=== PATIENT | male | born 1990 | race Two or more races ===

== ENCOUNTER 2018-03-16 15:58 | Emergency (ER) | payer OTHER ==
[2018-03-16] MEDS ORDERED: SILVER NITRATE APPLICATOR 1 APPL TP ONE (16:34)
[2018-03-16] MEDS ORDERED: amLODIPine BESYLATE 5 MG TAB PO ONE (17:15)
--- NOTE | 2018-03-16 17:18 | EDPHY ---
H & P Time Seen by Provider: 03/16/18 16:09 HPI/ROS: 28-year-old male presents complaining of right sided nosebleed that began earlier today has been intermittent all day. This is very unusual for him however he does say that he feels like his nose has been quite dry. He was also noted to have an elevated blood pressure, he states high blood pressure runs in his family and he has been told several years ago that his blood pressure was borderline. He denies headache chest pain shortness of breath leg swelling. Review of systems General no fever no chills no weakness HEENT no eye pain no eye discharge. No eye redness, no sore throat Respiratory no cough, no shortness of breath Cardiac no chest pain, no peripheral edema GI no abdominal pain, no diarrhea, no constipation, no nausea, no vomiting no flank pain, no hematuria, no dysuria Musculoskeletal no myalgias, no joint pain Heme no easy bruising, no easy bleeding Endo no polyuria, no polydipsia Skin no rashes, no pruritus Neuro no syncope, no dizziness, no headaches Psych is no suicidal ideation, no homicidal ideation Past Medical/Surgical History: Borderline hypertension Obesity Social History: Smokes marijuana Occasional alcohol denies other drug use Smoking Status: Never smoked Physical Exam: 28-year-old male alert and oriented no acute distress nontoxic appearance afebrile Current blood pressure 160/111 Repeat blood pressure 180/123 HEENT atraumatic normocephalic, extraocular muscles intact, anicteric Right anterior nares-right anterior septum with small area of bleeding Oropharynx negative for erythema negative exudate, tolerating her own secretions , negative for blood Neck supple no meningismus Lungs clear to auscultation bilaterally Heart regular rate and rhythm without murmur rub or gallop Abdomen nondistended normoactive bowel sounds soft nontender Back no CVA tenderness, no step-offs, no spinal tenderness Extremities no cyanosis clubbing or edema Neuro alert and oriented, no focal deficits Constitutional: Initial Vital Signs Temperature (C) 36.6 C 03/16/18 16:08 Heart Rate 110 H 03/16/18 16:08 Respiratory Rate 20 03/16/18 16:08 Blood Pressure 182/127 H 03/16/18 16:08 O2 Sat (%) 97 03/16/18 16:08 O2 Delivery Mode Room Air Allergies/Adverse Reactions: No Known Allergies Allergy (Unverified 09/02/11 13:52) Home Medications: Medication Instructions Recorded Hydrocodone Bit/Acetaminophen 1 - 2 tab PO Q4 PRN #15 tablet 09/02/11 [Hydrocodon-Acetaminophen 5-325] No Medications [NO HOME 1 ea MISC 09/02/11 MEDICATIONS] amLODIPine BESYLATE [Norvasc 5 mg 5 mg PO DAILY #30 tab 03/16/18 (*)] Medical Decision Making ED Course/Re-evaluation: Patient seen and evaluated for right nose bleed, and noted to have a high blood pressure. Right anterior nosebleed controlled with cauterization with silver nitrate. Patient observed for an additional 30 min with no further bleeding. Patient's blood pressure remained hypertensive, however he refused any further workup for his blood pressure, but agreed to start a blood pressure medicine and to follow up with primary care as soon as possible . Impression/plan Right anterior epistaxis, with small septal bleed-resolved with silver nitrate Hypertension Given 1st dose of amlodipine and Rx for amlodipine 5 mg daily for 1 month Advised to have close follow-up with a primary care physician Differential Diagnosis: Differential diagnosis considered but not limited to: Nosebleed-anterior, posterior, nasal polyp, nasal foreign body - Data Points Medications Given: Discontinued Medications Amlodipine Besylate (Norvasc) 5 mg PO EDNOW ONE Stop: 03/16/18 17:16 Last Admin: 03/16/18 17:18 Dose: 5 mg Silver Nitrate/Potassium Nitrate (Silver Nitrate Applicator) 1 each TP EDNOW ONE Stop: 03/16/18 16:35 Last Admin: 03/16/18 16:37 Dose: 1 each Departure - Departure Disposition: Home, Routine, Self-Care Clinical Impression: Anterior epistaxis, Hypertension Condition: Good Instructions: Nosebleed (ED), Hypertension (ED) Referrals: NONE *PRIMARY CARE P,. [Primary Care Provider] - As per Instructions [facility] [Provider Group] - As per Instructions Prescriptions: amLODIPine BESYLATE [Norvasc 5 mg (*)] 5 mg PO DAILY #30 tab
[2018-03-16 17:42] VITALS: BP 181/120
== END 2018-03-16 17:31 | disposition home or self-care (01) ==
LOC: CED 15:58
PROC: 3E09XTZ Introduction of Destructive Agent into Nose, External Approach (ICD-10-PCS; principal; 2018-03-16)
DX: R04.0 Epistaxis (principal); I10 Essential (primary) hypertension

== ENCOUNTER → 2018-03-16 | Emergency (ER) | payer OTHER | END | disposition home or self-care (01) | LOC: CED 14:58 | DX: Z53.21 Procedure and treatment not carried out due to patient leaving prior to being seen by health care provider (principal) ==